=== PATIENT | female | born 1985 | race Two or more races ===

== ENCOUNTER 2023-07-02 21:34 | Outpatient (REF) | payer OTHER, SELFPAY ==
[2023-07-05 18:08] LABS: Age Gdln ACOG Testing Note (.); HPV Aptima Negative (Negative); IGP, Aptima HPV, rfx 16/18,45 Note (.)
== END 2023-07-02 21:35 | disposition home or self-care (01) ==
LOC: LAB 21:34
PROVIDERS: Visit Provider Obstetrics & Gynecology
DX: Z01.419 Encounter for gynecological examination (general) (routine) without abnormal findings (principal)
CPT/HCPCS: 87624; G0145

== ENCOUNTER 2024-07-09 14:30 | Outpatient (REF) | payer OTHER, SELFPAY | END 2024-07-09 14:31 | disposition home or self-care (01) | LOC: LAB 14:30 | PROVIDERS: Visit Provider Obstetrics & Gynecology | DX: Z01.419 Encounter for gynecological examination (general) (routine) without abnormal findings (principal) | CPT/HCPCS: 88175 ==

== ENCOUNTER 2025-07-20 20:16 | Outpatient (REF) | payer OTHER, SELFPAY ==
--- OUTSIDE RECORDS SUMMARY | 2025-07-20 14:00 | XMS_ITS | Encounter Summary ---
Author Organization [facility] Address [address] [place] [address] Care Team Providers Care Hogshead Dumper Name Role Phone Unavailable Primary Care Provider Unavailabl e Reason for Visit * ReasonCommentsGynecologic Exam Encounter Details DateTypeDepartmentCare Team (Latest Contact Info)Ipoecvpidbl75/15/2025 2:00 PM ESTOffice Visit [facility] [address] [place] [address] Jeevan Cuellar DO [address] [facility] [address] [place], [place] [id number] Well woman exam with routine gynecological exam; Encounter for screening mammogram for malignant neoplasm of breast Social History Tobacco UseTypesPacks/DayYears UsedDateSmoking Tobacco: NeverSmokeless Tobacco: NeverAlcohol UseStandard Drinks/WeekCommentsNever0 (1 standard drink = 0.6 oz pure alcohol)caffeine: 3-4 cups per day sodaCommentsUnknownSex and Gender InformationValueDate RecordedSex Assigned at BirthNot on fileLegal Sex Njrwaf8310/18/2022 6:51 PM EDTGender WtqlbwgyAekfug88/27/2023 2:18 PM ESTSexual OrientationNot on filedocumented as of this encounter Last Filed Vital Signs Vital SignReadingTime TakenCommentsBlood Sidffhdq486/6007/20/2025 2:33 PM EST Pulse--Temperature--Respiratory Rate--Oxygen Saturation--Inhaled Oxygen Concentration--Apaokc986 kg (262 lb)07/20/2025 2:33 PM ESTHeight--Body Mass Index41.6507/02/2023 3:15 PM ESTdocumented in this encounter Plan of Treatment DateTypeDepartmentCare Team (Latest Contact Info)Ikwtjbwmxof22/21/2026 2:00 PM ESTProcedure Visit [facility] [address] [place] [address] Jeevan Cuellar DO [address] [facility] [place] [address] NameTypePriorityAssociated DiagnosesOrder ScheduleBilateral screening mammogram ImagingRoutine Encounter for screening mammogram for malignant neoplasm of breast Expected: 07/20/2025 (Approximate), Expires: 09/20/2026THIN PREP TIS PAP AND HR HPV DNAPathology and CytologyRoutine Well woman exam with routine gynecological exam Ordered: 07/20/2025documented as of this encounter Visit Diagnoses Diagnosis Well woman exam with routine gynecological exam Routine gynecological examination Encounter for screening mammogram for malignant neoplasm of breast documented in this encounter
--- OUTSIDE RECORDS SUMMARY | 2025-07-20 20:19 | XMS_ITS | Clinical Summary ---
Author Organization [employer] [facility] tem Address [id number] [address] [place] [address] Care Team Providers Care Blood Donor Unit Assistant Name Role Phone NormduylettyAlice chun COMMUNICATIONS SENIOR ASSOCIATE-EXPRESS CLERK Primary Care Provide r Allergies No known active allergies Medications MedicationSigDispense QuantityRefillsLast FilledStart DateEnd DateStatus albuterol (PROVENTIL HFA;VENTOLIN HFA) 90 mcg/actuation inhaler Inhale 2 puffs every 6 (six) hours as needed for wheezing. 18 g Active amitriptyline (ELAVIL) 10 mg tablet Indications:Chronic pain syndromeTake 1 tablet (10 mg total) by mouth nightly. 30 tablet 5Active meloxicam (MOBIC) 15 mg tablet Indications:Chronic pain syndrome,Degenerative disc disease at L5-S1 level,Foot pain, bilateralTake 1 tablet (15 mg total) by mouth in the morning. 30 tablet 5Active tiZANidine (ZANAFLEX) 2 mg tablet Indications:Chronic pain syndrome,Degenerative disc disease at L5-S1 level,Foot pain, bilateralOne tab at 8:00 p.m.each night 30 tablet 5Active Active Problems ProblemNoted DateDiagnosed PwxmZlwhhb47/06/2019Recurrent otitis externa of both ears07/16/2018Vaginal lfwvocsen23/16/2016 Encounters DateTypeDepartmentCare BvgqZcobfcfsxpt97/22/2025 1:30 PM EDTOffice Visit [facility] Department of [address] [place] [address] Yajaira Moreira PA Chronic pain syndrome (Primary Dx); Degenerative disc disease at L5-S1 level; Foot pain, bilateral; Family history of psoriasis in phfdia7205/27/20257253Zzzfzy63/01/2025Results Follow-Up [facility] [address] [place] [address] Alice Nolan, COMMUNICATIONS SENIOR ASSOCIATE-EXPRESS CLERK CBC auto differential, Comprehensive metabolic panel, Iron and TIBC, Ferritin 05/05/2025Travelfrom Last 3 Months Immunizations No known immunizations Family History Medical HistoryRelationNameCommentsCancerMaternal GrandfatherEsophageal cancer Maternal GrandfatherStomach cancerMaternal GrandfatherDiabetesMaternal GrandmotherHeart diseaseMaternal GrandmotherDiabetesMotherRelationNameStatus CommentsFatherAliveMaternal GrandfatherDeceasedMaternal GrandmotherMotherAlive Social History Tobacco UseTypesPacks/DayYears UsedDateSmoking Tobacco: NeverSmokeless Tobacco: Never Tobacco Cessation:Counseling Given: Not Answered Alcohol UseStandard Drinks/WeekCommentsYes0 (1 standard drink = 0.6 oz pure alcohol)socialAUDIT-CAnswerDate RecordedFrequency of Alcohol ConsumptionNever 07/09/2018Average Number of DrinksNot on file07/09/2018Frequency of Binge DrinkingNot on file07/09/2018PHQ-2AnswerDate RecordedTotal Osukc796 ChildcareAnswerDate LwjolxqrJwreglgrxBgcavui89/12/2019EmploymentAnswerDate FaawrlfvJrozbsywofLukzeab88/12/2019Hunger ScreeningAnswerDate RecordedWithin the past 12 months we worried whether our food would run out before we got money to buy more.Never True02/11/2025Within the past 12 months the food we bought just didn't last and we didn't have money to get more.Never True02/11/2025Purpose - LifeAnswerDate RecordedPurpose and direction in cvydYskrqox00/11/2021 CommentsNoSex and Gender InformationValueDate RecordedSex Assigned at Vauwpw9503/06/2023 5:26 PM EDTLegal CdnCnclso19/06/2015 11:29 AM EDTGender HdvehvhvEiqomh32/01/2023 5:26 PM EDTSexual OrientationChoose not to disclose 03/06/2023 5:26 PM EDT Last Filed Vital Signs Vital SignReadingTime TakenCommentsBlood Spfeeyhp274/7902/11/2025 7:45 PM EDT Aptck227202/11/2025 7:45 PM DXTFdofsfqpbts69.4 ??C (97.5 ??F)02/11/2025 7:45 PM EDTRespiratory Mnvb0398 1:36 PM EDTOxygen Jxggqvpnnh33%02/11/2025 7:45 PM EDTInhaled Oxygen Concentration--Lvjldk030.4 kg (261 lb)05/27/2025 1:36 PM OIXJjefrp909.6 cm (5' 6 )05/27/2025 1:36 PM EDTBody Mass Index42.131 1:36 PM EDT Plan of Treatment DateTypeDepartmentCare Team (Latest Contact Info)Zqrtyejpdkc72/22/2026 12:45 PM ESTOffice Visit [facility] Department of [address] [address] Yajaira Moreira PA [address] [place] [address] 12/09/2025 3:00 PM EDTOffice Visit [facility] [address] [place] [address] Alice Nolan, COMMUNICATIONS SENIOR ASSOCIATE-EXPRESS CLERK [address] [place] [address] Health MaintenanceDue DateLast DoneCommentsDTaP,Tdap and Td Vaccines (1 - Tdap) 2004Influenza Msmhgpl29/dult BMI Follow Up Plan Depression Izvhnvppo98dult BMI Screening Tobacco Rihvyyxdp03Pap Smear07/09/2027 07/09/2024, 07/02/2023 Medical Devices Not on file Procedures Procedure NamePriorityDate/TimeAssociated DiagnosisCommentsFERRITINRoutine 05/05/2025 4:45 PM EDT Iron deficiency anemia secondary to inadequate dietary iron intake IRON AND ZMLDBiskwro40/30/2025 4:45 PM EDT Iron deficiency anemia secondary to inadequate dietary iron intake COMPREHENSIVE METABOLIC REDJXHwgwpru41/30/2025 4:45 PM EDT Wellness examination CBC WITH AUTO ZNQFZYXTRPTRDggljfs01/30/2025 4:45 PM EDT Wellness examination from Last 3 Months Results * (ABNORMAL) CBC auto differential (05/05/2025 4:45 PM EDT)ComponentValueRef RangeTest MethodAnalysis TimePerformed AtPathologist SignatureWBC7.24 - 11 x10E9/L05/05/2025 10:27 PM [facility] LABORATORYRBC Count4.76 3.8 - 5.2 X10E12/L05/05/2025 10:27 PM [facility] Fljljaukbk35.5(L)11.7 - 15.5 g/dL05/05/2025 10:27 PM [facility] RPTFQFISHUDhetfjathw70.8(L)35 - 47 %05/05/2025 10:27 PM [facility] MBQDGJLOJILCZ52(L)80 - 100 fL05/05/2025 10:27 PM [facility] WLIXDZABDJNVI72.2(L)27 - 34 pg05/05/2025 10:27 PM [facility] JIGBBTRRYVJURU17.032 - 36 g/dL05/05/2025 10:27 PM [facility] CKDBOKKZXKZDQ05.5(H)11.5 - 15 %05/05/2025 10:27 PM [facility] LABORATORYPlatelet Ycfxb163668 - 450 X10E9/L05/05/2025 10:27 PM [facility] LABORATORYMPV8.27 - 12 fL05/05/2025 10:27 PM [facility] LABORATORYNeutrophils %58.1%05/05/2025 10:27 PM [facility] LABORATORYLymphocytes %32.4%05/05/2025 10:27 PM [facility] LABORATORYMonocytes %4.5%05/05/2025 10:27 PM [facility] LABORATORYEosinophils %4.5%05/05/2025 10:27 PM [facility] LABORATORYBasophils %0.5%05/05/2025 10:27 PM [facility] LABORATORYNeutrophils Absolute (A)4.21.5 - 6.6 10*3/uL05/05/2025 10:27 PM [facility] LABORATORYLymphocytes Absolute2.31.0 - 3.5 10*3/uL05/05/2025 10:27 PM [facility] LABORATORYMonocytes Absolute0.30.0 - 0.9 10*3/uL05/05/2025 10:27 PM [facility] LABORATORYEosinophils Absolute0.30.0 - 0.4 10*3/uL05/05/2025 10:27 PM [facility] LABORATORYBasophils Absolute0.00.0 - 0.2 10*3/uL05/05/2025 10:27 PM [facility] LABORATORYDifferential TypeAUTOMATED UZFPSRVGNSHV49/30/2025 10:27 PM [facility] LABORATORYSpecimen (Source)Anatomical Location / LateralityCollection Method / VolumeCollection TimeReceived TimeBloodVenous blood / UnknownVenipuncture / Fvbebbj59/ 4:45 PM EDT05/05/2025 4:45 PM EDT Narrative Authorizing ProviderResult TypeResult StatusAlice Nolan COMMUNICATIONS SENIOR ASSOCIATE-CNPLAB BLOOD ORDERABLESFinal ResultPerforming OrganizationAddressCity/State/ZIP CodePhone Number [facility] [address] [place] [address], * (ABNORMAL) Iron and TIBC (05/05/2025 4:45 PM EDT)ComponentValueRef RangeTest MethodAnalysis TimePerformed AtPathologist NsdmmfywzMVDN84(L)50 - 170 ug/dL 05/05/2025 11:07 PM [facility] KBMHDXMQVRQDMVDDVXTJV599398 - 336 mg/dL05/05/2025 11:07 PM [facility] LABORATORYIRON APJWYEG173980 - 425 ug/dL05/05/2025 11:07 PM [facility] LABORATORYIRON RDNKWOMLFK28(L)15 - 50 % EDMVMDLNJN09/30/2025 11:[address] [facility] LABORATORYSpecimen (Source)Anatomical Location / LateralityCollection Method / VolumeCollection TimeReceived TimeBloodVenous blood / UnknownVenipuncture / Ixjzmwv4005/05/2025 4:45 PM EDT05/05/2025 4:45 PM EDT Narrative Authorizing ProviderResult TypeResult StatusAlice Nolan COMMUNICATIONS SENIOR ASSOCIATE-CNPLAB BLOOD ORDERABLESFinal ResultPerforming OrganizationAddressCity/State/ZIP CodePhone Number [facility] [address] [place] [address], * Ferritin (05/05/2025 4:45 PM EDT)ComponentValueRef RangeTest MethodAnalysis TimePerformed AtPathologist CmlzzjmggEAVLGXNZ4976 - 307 ng/mL05/05/2025 11:18 PM [facility] LABORATORYSpecimen (Source)Anatomical Location / LateralityCollection Method / VolumeCollection TimeReceived TimeBloodVenous blood / UnknownVenipuncture / Xakrtyo7105/05/2025 4:45 PM EDT05/05/2025 4:45 PM EDT Narrative Authorizing ProviderResult TypeResult StatusAlice Nolan COMMUNICATIONS SENIOR ASSOCIATE-CNPLAB BLOOD ORDERABLESFinal ResultPerforming OrganizationAddressCity/State/ZIP CodePhone Number [facility] [address] [place] [address], * (ABNORMAL) Comprehensive metabolic panel (05/05/2025 4:45 PM EDT)Component ValueRef RangeTest MethodAnalysis TimePerformed AtPathologist SignatureSODIUM 286674 - 146 mmol/L05/05/2025 11:07 PM [facility] POTASSIUM3.83.5 - 5.0 mmol/L05/05/2025 11:07 PM [facility] VVWKPQEKIZZMQMOPXP70128 - 109 mmol/L05/05/2025 11:07 PM [facility] LABORATORYCARBON SRHQEEB7765 - 32 mmol/L05/05/2025 11:07 PM [facility] LABORATORYANION GAP4(L)5 - 15 mmol/L05/05/2025 11:[address] [facility] LABORATORYBLOOD UREA CAALGTVA937 - 23 mg/dL05/05/2025 11:07 PM [facility] LABORATORYCREATININE0.570.40 - 1.00 mg/dL 05/05/2025 11:07 PM [facility] LABORATORYComment:METHOD TRACEABLE TO IDTN WTKOIZDAGBWEXBD9041 - 99 mg/dL05/05/2025 11:07 PM [facility] LABORATORYCALCIUM9.38.5 - 10.5 mg/dL05/05/2025 11:[address] [facility] LABORATORYTOTAL PROTEIN6.96.0 - 8.0 g/dL05/05/2025 11:07 PM [facility] LABORATORYALBUMIN3.93.2 - 5.3 g/dL 05/05/2025 11:07 PM [facility] LABORATORYALKALINE PHOSPHATASE 8439 - 130 U/L05/05/2025 11:07 PM [facility] HZBIZVOQWWAHB73 <=41 U/L05/05/2025 11:07 PM [facility] EULNONXZUGKLP55<=31 U/L05/05/2025 11:07 PM [facility] LABORATORYBILIRUBIN,TOTAL 0.40.3 - 1.2 mg/dL05/05/2025 11:07 PM [facility] EGFR Non-Race Dependent>90>=60 ml/min/1.73sq.m005/05/2025 11:07 PM [facility] LABORATORYComment: Reported eGFR is based on the CKD-EPI 2020 equation that does not use a race coefficient. Specimen (Source)Anatomical Location / LateralityCollection Method / Volume Collection TimeReceived TimeBloodVenous blood / UnknownVenipuncture / Unknown 05/05/2025 4:45 PM EDT05/05/2025 4:45 PM EDT Narrative Authorizing ProviderResult TypeResult StatusKendra Nolan COMMUNICATIONS SENIOR ASSOCIATE-CNPLAB BLOOD ORDERABLESFinal ResultPerforming OrganizationAddressCity/State/ZIP CodePhone Number [facility] [address] [place] [address], from Last 3 Months Insurance Care Teams Team MemberRelationshipSpecialtyStart DateEnd Date Alice Nolan APRN-DARCIE [address] [place] [address] PCP - GeneralFamily Elalmouu71/4/18
--- OUTSIDE RECORDS SUMMARY | 2025-07-20 20:19 | XMS_ITS | Encounter Summary ---
Author Organization [facility] Address [address] [place] [address] Care Team Providers Care Gelatin Maker Utility Name Role Phone Unavailable Primary Care Provider Unavailabl e Encounter Details DateTypeDepartmentCare Team (Latest Contact Info)Pecknejwazo24/15/2025amboo flowsheet NOMNatalie [facility] GynesonicsW[facility] [place] [address] Jeevan Cuellar, [address] [place], [facility] Social History Tobacco UseTypesPacks/DayYears UsedDateSmoking Tobacco: NeverSmokeless Tobacco: NeverAlcohol UseStandard Drinks/WeekCommentsNever0 (1 standard drink = 0.6 oz pure alcohol)caffeine: 3-4 cups per day sodaCommentsUnknownSex and Gender InformationValueDate RecordedSex Assigned at BirthNot on fileLegal Sex Psalqz1210/18/2022 6:51 PM EDTGender SmptuhjlUznrqs09/27/2023 2:18 PM ESTSexual OrientationNot on filedocumented as of this encounter Plan of Treatment DateTypeDepartmentCare Team (Latest Contact Info)Tbitwysmaog94/21/2026 2:00 PM ESTProcedure Visit [facility] ESCALANTE [address] [place] [address] Jeevan Cuellar, [address] [place] [address] documented as of this encounter Visit Diagnoses Not on filedocumented in this encounter
--- OUTSIDE RECORDS SUMMARY | 2025-07-20 20:19 | XMS_ITS | Clinical Summary ---
Author Organization [facility] Address [address] [place] [address] Care Team Providers Care Workplace Rehabilitation Officer Name Role Phone Unavailable Primary Care Provider Unavailabl e Allergies No known active allergies Medications MedicationSigDispense QuantityRefillsLast FilledStart DateEnd DateStatus amitriptyline (Elavil) 10 MG tablet 5Active FeroSul 325 (65 Fe) MG tablet 5Active Encounters DateTypeDepartmentCare NbzxGgvkvpqpflj93/15/2025 2:00 PM ESTOffice Visit [facility] ESCALANTE [address] [facility] [place] [address] Jeevan Cuellar DO Well woman exam with routine gynecological exam; Encounter for screening mammogram for malignant neoplasm of bcwyxo9807/20/2025 Bamboo flowsheet NOMNatalie ESCALANTE [address] [facility] [place] [address] Jeevan Cuellar DO from Last 3 Months Family History Medical HistoryRelationNameCommentsDiabetesMaternal GrandmotherHeart disease Maternal GrandmotherHypertensionMaternal GrandmotherDiabetesMotherHypertension MotherRelationNameStatusCommentsFatherMaternal GrandmotherMother Social History Tobacco UseTypesPacks/DayYears UsedDateSmoking Tobacco: NeverSmokeless Tobacco: Never Tobacco Cessation:Counseling Given: Not Answered Alcohol UseStandard Drinks/WeekCommentsNever0 (1 standard drink = 0.6 oz pure alcohol)caffeine: 3-4 cups per day sodaCommentsUnknownSex and Gender InformationValueDate RecordedSex Assigned at BirthNot on fileLegal SexFemale 10/18/2022 6:51 PM EDTGender UambbvaxHonjvj06/27/2023 2:18 PM ESTSexual OrientationNot on file Last Filed Vital Signs Vital SignReadingTime TakenCommentsBlood Mycrshda373/6007/20/2025 2:33 PM EST Pulse--Temperature--Respiratory Rate--Oxygen Saturation--Inhaled Oxygen Concentration--Ruhyhw646 kg (262 lb)07/20/2025 2:33 PM UYGTisqws756.9 cm (5' 6.5 )07/02/2023 3:15 PM ESTBody Mass Index41.6507/02/2023 3:15 PM EST Plan of Treatment DateTypeDepartmentCare Team (Latest Contact Info)Xootzuxsgwx07/21/2026 2:00 PM ESTProcedure Visit [facility] [address] [facility] [place] [address] Jeevan Cuellar DO [address] [place] [address] Insurance
--- OUTSIDE RECORDS SUMMARY | 2025-07-20 20:19 | XMS_ITS | Clinical Summary ---
Author Organization [facility] Address [address] [facility], [address] [place] [address] Care Team Providers Care Billing Analyst Name Role Phone Alice Nolan APRN - BURRER MACHINE Primary Care Provi arya Allergies No known active allergies Medications MedicationSigDispense QuantityRefillsLast FilledStart DateEnd DateStatus famotidine (PEPCID) 20 MG tablet Take 1 tablet by mouth 2 times daily for 7 days 14 tablet 08/01/2023ctive Social History Tobacco UseTypesPacks/DayYears UsedDateSmoking Tobacco: NeverAlcohol UseStandard Drinks/WeekCommentsYes0 (1 standard drink = 0.6 oz pure alcohol)occInterpersonal Safety Domain Source: IP Abuse ScreeningAnswerDate RecordedRead-Only, Retired: Physical EgyxwBmshlo80/26/2023Read-Only, Retired: Verbal SrjcrIkwcuh97/26/2023 Emotional abuseNot on file07/31/2023Financial abuseNot on file07/31/2023Sexual abuseNot on file07/31/2023CommentsNoSex and Gender InformationValueDate RecordedSex Assigned at BirthNot on fileLegal OvqInsuib67/14/2015 11:07 AM EDT Gender IdentityNot on fileSexual OrientationNot on file Last Filed Vital Signs Vital SignReadingTime TakenCommentsBlood Emzxukoq505/8808/25/2024 8:42 PM EST Xvysv781508/25/2024 8:42 PM FOCQqlnichlihf17.3 ??C (99.1 ??F)08/25/2024 8:42 PM ESTRespiratory Cuto192908/25/2024 8:42 PM ESTOxygen Aqnfxdualt72%08/25/2024 8:42 PM ESTInhaled Oxygen Concentration--Ullalf937 kg (242 lb 8.1 oz)08/25/2024 8:42 PM MSAKddesj041 cm (5' 6.14 )08/25/2024 8:42 PM ESTBody Mass Index38.97 08/25/2024 8:42 PM EST Plan of Treatment Health MaintenanceDue DateLast DoneCommentsDTaP/Tdap/Td vaccine (1 - Tdap) 2004Flu vaccine (#1)03/06/2025OVID-19 Vaccine ( - season) 2025Polio vaccineAged OutNo longer eligible based on patient's age to complete this topic Insurance * Guarantor: Elvia Jurado TypeRelation to PatientDate of BirthPhone Billing AddressPersonal/VykjnnKlli1985 [address] [place] [address] Care Teams Team MemberRelationshipSpecialtyStart DateEnd Date Alice Nolan APRN - BURRER MACHINE PCP - GeneralPediatric Wbmpcfswlsfwzs65/26/23
== END 2025-07-20 20:17 | disposition home or self-care (01) ==
LOC: LAB 20:16
PROVIDERS: Visit Provider Obstetrics & Gynecology
DX: Z01.419 Encounter for gynecological examination (general) (routine) without abnormal findings (principal)
CPT/HCPCS: 88175